=== PATIENT | female | born 1950 | race Caucasian/White ===

== ENCOUNTER 2022-01-23 09:56 | Emergency (ER) | payer MEDICARE, SELFPAY ==
[~2022-01-23 09:56] MED LIST: Heparin 10,000 UNITS/ 10 ML VIAL ONE
== END 2022-01-23 11:45 | disposition home or self-care (01) ==
LOC: ERS 09:56
DX: T82.49XA Other complication of vascular dialysis catheter, initial encounter (principal); E11.22 Type 2 diabetes mellitus with diabetic chronic kidney disease; I13.2 Hypertensive heart and chronic kidney disease with heart failure and with stage 5 chronic kidney disease, or end stage renal disease; N18.6 End stage renal disease; Z99.2 Dependence on renal dialysis; E78.5 Hyperlipidemia, unspecified; Z87.891 Personal history of nicotine dependence; Z79.899 Other long term (current) drug therapy; Z79.84 Long term (current) use of oral hypoglycemic drugs
CPT/HCPCS: 99283; J1644

== ENCOUNTER 2022-11-19 09:01 | Outpatient (CLI) | payer MEDICARE | END 2022-11-19 09:02 | disposition home or self-care (01) | LOC: BICMAMMO 09:01 | PROVIDERS: ATTEND Internal Medicine | DX: N63.20 Unspecified lump in the left breast, unspecified quadrant (principal) | CPT/HCPCS: 76642; 77066; G0279 ==

== ENCOUNTER 2022-12-30 17:00 | Outpatient (CLI) | payer MEDICARE | END 2022-12-30 17:01 | disposition home or self-care (01) | LOC: SLEEPLAB 17:00 | PROVIDERS: ATTEND Internal Medicine | DX: G47.33 Obstructive sleep apnea (adult) (pediatric) (principal); R53.83 Other fatigue; F32.A Depression, unspecified; F41.9 Anxiety disorder, unspecified; E11.9 Type 2 diabetes mellitus without complications; E66.9 Obesity, unspecified; Z68.44 Body mass index [BMI] 60.0-69.9, adult; G47.00 Insomnia, unspecified; I10 Essential (primary) hypertension | CPT/HCPCS: 95810 ==

== ENCOUNTER 2023-01-03 07:44 | Outpatient (CLI) | payer MEDICARE ==
[2023-01-03 08:38] LABS: #Basophils 0.1 10x3/uL (0.0-0.2); #Eosinphils 0.1 10x3/uL (0.0-0.5); #Monocytes 0.5 10x3/uL (0.0-1.1); #Neutrophils 5.2 10x3/uL (1.5-8.4); %Basophils 0.8 % (0.0-2.0); %Lymphocytes 8.5 % (18.0-47.0); %Monocytes 7.2 % (0.0-10.0); %Neutrophils 81.2 % (40.0-75.0); Hematocrit 31.6 % (34.9-44.5); Hemoglobin 10.1 g/dL (12.0-15.5); Mean Corpuscular Hemoglobin 30.6 pg (27.0-33.0); Mean Corpuscular Volume 95.8 fl (81.6-98.3); Mean Platelet Volume 9.8 fl (7.4-10.4); Platelet Count 183 10x3/uL (150-450); RBC Distribution Width 15.3 % (11.5-14.5); White Blood Cell (WBC) Count 6.4 10x3/uL (3.5-10.5)
[2023-01-03 09:02] LABS: AST (SGOT) 27 U/L (5-34); Anion Gap 20 mmol/L (10-20); Bilirubin, Total 0.4 mg/dL (0.2-1.2); Calc. Creatinine Clearance 0 mL/min (70-130); Carbon Dioxide 21 mmol/L (23-31); Chloride 105 mmol/L (98-107); Estimated GFR 10; Protein, Total 6.9 g/dL (5.8-8.1); Sodium 142 mmol/L (136-145)
[2023-01-03 09:22] LABS: ALT (SGPT) 9 U/L (8-55); Albumin 3.9 g/dL (3.4-4.8); Alkaline Phosphatase 131 U/L (40-110); BUN (Urea Nitrogen) 62 mg/dL (9.8-20.1); Glucose 159 mg/dL (80-115)
== END 2023-01-03 07:45 | disposition home or self-care (01) ==
LOC: LABBT 07:44
PROVIDERS: ATTEND Surgery
DX: Z01.812 Encounter for preprocedural laboratory examination (principal); R23.4 Changes in skin texture
CPT/HCPCS: 80053; 85025

== ENCOUNTER 2023-01-13 09:38 | Day surgery (SDC) | payer MEDICARE ==
[2023-01-03 08:18] VITALS: BMI 48.7
[2023-01-13] MEDS ORDERED: Isosulfan Blue 50 MG/5 ML VIAL ONE (12:19)
[2023-01-13] MEDS ORDERED: EPINEPHrine 1 MG/ML VIAL ONE (12:19)
[2023-01-13] MEDS ORDERED: Lidocaine 2% PF 5 ML VIAL ONE ×2 (12:20→12:39)
[2023-01-13] MEDS ORDERED: Bupivacaine PF 0.5% 30 ML VIAL ONE (12:20)
[2023-01-13] MEDS ORDERED: PROPOFOL 20 ML ONE (12:36)
[2023-01-13] MEDS ORDERED: fentaNYL PF 100 MCG/2 ML SYRINGE ONE (12:36)
[2023-01-13] MEDS ORDERED: Rocuronium Bromide 10 MG/ML (10ML VIAL) ONE ×2 (12:41→12:51)
[2023-01-13] MEDS ORDERED: Vancomycin (BATCH) 1.5 GM/300 ML BAG ONE (12:45)
[2023-01-13] MEDS ORDERED: PHENYLEPHRINE-NS 100 MCG/ML 10 ML SYRINGE ONE ×2 (12:51→13:08)
[2023-01-13] MEDS ORDERED: Lidocaine 1% PF 5 ML VIAL ONE (12:51)
[2023-01-13] MEDS ORDERED: PROPOFOL 200 MG/20 ML VIAL ONE (12:51)
[2023-01-13] MEDS ORDERED: SUGAMMADEX SODIUM 200 MG/2 ML VIAL ONE (13:30)
[2023-01-13] MEDS ORDERED: HYDROcodone/Acetaminophen 5/325 mg Tablet ONE (15:18)
== END 2023-01-13 16:50 | disposition home or self-care (01) ==
LOC: SDC 09:38
PROVIDERS: ATTEND Surgery
PROC: 0HB5XZX Excision of Chest Skin, External Approach, Diagnostic (ICD-10-PCS; principal; 2023-01-13)
DX: N64.59 Other signs and symptoms in breast (principal); E11.9 Type 2 diabetes mellitus without complications; N19 Unspecified kidney failure; R23.4 Changes in skin texture
CPT/HCPCS: 19120; J0171; J3370; 88305; J2001; J2704; Q9968; S0020

== ENCOUNTER 2023-06-27 13:46 | Outpatient (CLI) | payer MEDICARE ==
[2023-06-27 15:09] LABS: #Basophils 0.05 10x3/uL (0.0-0.2); #Monocytes 0.72 10x3/uL (0.0-1.1); #Neutrophils 5.92 10x3/uL (1.5-8.4); %Basophils 0.6 % (0.0-2.0); %Eosinophils 3.9 % (0.0-6.0); %Lymphocytes 9.5 % (18.0-47.0); %Monocytes 9.3 % (0.0-10.0); %Neutrophils 76.4 % (40.0-75.0); Hematocrit 34.1 % (34.9-44.5); Mean Corpuscular HGB CONC 32.3 g/dL (32.0-36.0); Mean Corpuscular Hemoglobin 30.5 pg (27.0-33.0); Mean Corpuscular Volume 94.5 fl (81.6-98.3); Platelet Count 222 10x3/uL (150-450); Red Blood Cell (RBC) Count 3.61 10x6/uL (3.90-5.03); White Blood Cell (WBC) Count 7.8 10x3/uL (3.5-10.5)
[2023-06-27 15:44] LABS: ALT (SGPT) 8 U/L (8-55); AST (SGOT) 24 U/L (5-34); Albumin 3.7 g/dL (3.4-4.8); Alkaline Phosphatase 102 U/L (40-110); Anion Gap 16 mmol/L (10-20); BUN (Urea Nitrogen) 57 mg/dL (9.8-20.1); Bilirubin, Total 0.4 mg/dL (0.2-1.2); Calc. Creatinine Clearance 0 mL/min (70-130); Calcium 9.8 mg/dL (7.8-10.44); Carbon Dioxide 27 mmol/L (23-31); Chloride 97 mmol/L (98-107); Estimated GFR 9; Globulin 3.3 g/dL (2.4-3.5); Glucose 87 mg/dL (80-115); Potassium 4.3 mmol/L (3.5-5.1); Sodium 136 mmol/L (136-145)
== END 2023-06-27 13:47 | disposition home or self-care (01) ==
LOC: LABBT 13:46
PROVIDERS: ATTEND Internal Medicine Cardiovascular Disease
DX: Z01.812 Encounter for preprocedural laboratory examination (principal); I42.9 Cardiomyopathy, unspecified; R94.39 Abnormal result of other cardiovascular function study
CPT/HCPCS: 80053; 85025

== ENCOUNTER 2023-12-25 10:30 | Emergency (ER) | payer MEDICARE, SELFPAY ==
[2023-12-25] MEDS ORDERED: Ipratropium/Albuterol 3 ML NEB ONE ×2 (11:26→16:55)
[2023-12-25] MEDS ORDERED: Lisinopril 10 MG TAB ONE (11:26)
[2023-12-25 12:12] LABS: #Basophils Less than 0.03 10x3/uL (0.0-0.2); %Basophils 0.4 % (0.0-1.0); %Eosinophils 2.7 % (0.0-10.0); %Lymphocytes 12.8 % (21.0-51.0); %Monocytes 9.6 % (0.0-10.0); Hematocrit 32.1 % (36.0-47.0); Hemoglobin 10.5 g/dL (12.0-16.0); Mean Corpuscular HGB CONC 32.7 g/dL (32.0-36.0); Mean Corpuscular Hemoglobin 29.9 pg (27.0-31.0); Mean Corpuscular Volume 91.5 fL (78.0-98.0); Mean Platelet Volume 10.6 fL (7.4-10.4); Platelet Count 171 10x3/uL (130-400); RBC Distribution Width 15.4 % (11.5-14.5); Red Blood Cell (RBC) Count 3.51 mill/uL (4.20-5.40)
[2023-12-25 12:22] LABS: ALT (SGPT) 14 U/L (8-55); AST (SGOT) 24 U/L (5-34); Albumin 3.3 g/dL (3.4-4.8); Alkaline Phosphatase 159 U/L (40-110); Anion Gap 18 mmol/L (10-20); BUN (Urea Nitrogen) 26 mg/dL (9.8-20.1); Bilirubin, Total 0.5 mg/dL (0.2-1.2); Calc. Creatinine Clearance 0 mL/min (70-130); Calcium 9.1 mg/dL (7.8-10.44); Carbon Dioxide 26 mmol/L (23-31); Chloride 101 mmol/L (98-107); Estimated GFR 18; Globulin 3.5 g/dL (2.4-3.5); Glucose 111 mg/dL (83-110); Potassium 3.3 mmol/L (3.5-5.1); Protein, Total 6.8 g/dL (5.8-8.1); Sodium 142 mmol/L (136-145)
[2023-12-25 12:42] LABS: Troponin I 0.027 ng/mL (< 0.028)
[2023-12-25] MEDS ORDERED: Metoprolol Tartrate 50 MG TAB ONE (14:12)
[2023-12-25 15:22] LABS: Troponin I 0.017 ng/mL (< 0.028)
[2023-12-25] MEDS ORDERED: hydrOXYzine 25 MG TAB ONE ×2 (17:02→20:10)
== END 2023-12-25 20:08 | disposition home or self-care (01) ==
LOC: ERS 10:30
DX: I10 Essential (primary) hypertension (principal); R06.02 Shortness of breath; R00.2 Palpitations; I13.2 Hypertensive heart and chronic kidney disease with heart failure and with stage 5 chronic kidney disease, or end stage renal disease; E11.22 Type 2 diabetes mellitus with diabetic chronic kidney disease; N18.6 End stage renal disease; I50.9 Heart failure, unspecified; M19.90 Unspecified osteoarthritis, unspecified site; I73.9 Peripheral vascular disease, unspecified; I25.2 Old myocardial infarction; M79.7 Fibromyalgia; Z76.0 Encounter for issue of repeat prescription; Z99.2 Dependence on renal dialysis; Z87.891 Personal history of nicotine dependence; Z86.73 Personal history of transient ischemic attack (TIA), and cerebral infarction without residual deficits; Z79.899 Other long term (current) drug therapy; Z79.84 Long term (current) use of oral hypoglycemic drugs
CPT/HCPCS: 36415; 71045; 80053; 83880; 84484; 85025; 93005; J7620